=== PATIENT | female | born 1940 | race Caucasian/White ===

== ENCOUNTER 2022-02-06 10:55 | Outpatient (CLI) | payer MEDICARE, BC, SELFPAY ==
--- NOTE | 2022-02-06 11:15 | CRLHL7_ITS ---
For Patients: As a result of the Century Cures Act, medical imaging exams and procedure reports are released immediately into your electronic medical record. You may view this report before your referring provider. If you have questions, please contact your health care provider. Technique: Double-contrast esophagram performed after the uneventful administration of effervescent crystals and thick barium followed by thin barium. Fluoroscopy time 1 minutes 22 seconds. Indication: midsternal chest pain, intermittent x 1 year Comparison: None. Findings: Esophagus: Normal morphology and motility. No stricture or mass. Gastroesophageal reflux: None. Impression: No hiatal hernia. Esophageal motility is unremarkable for age. No significant reflux. Dictated by Joaquim Bosch MD @ 02/06/2022 12:38:14 PM (Electronically Signed)
== END 2022-02-06 10:56 | disposition home or self-care (01) ==
PROVIDERS: PCP Internal Medicine; Visit Provider Internal Medicine
DX: R07.89 Other chest pain (principal)
CPT/HCPCS: 74221